=== PATIENT | female | born 1975 ===

== ENCOUNTER 2022-06-28 21:47 | Emergency (ER) | payer BC ==
[~2022-06-28] VITALS: Ht 165.1 cm; Wt 81.6 kg
[2022-06-28] MEDS ORDERED: ACID REDUCER20 M1 PO (22:05)
[2022-06-29] MEDS ORDERED: ZOFRAN8 MG PO (01:42)
[2022-06-29] MEDS ORDERED: PEPCID40 MG PO (01:42)
== END 2022-06-29 01:47 ==
LOC: ER 21:47
DX: A05.9 Bacterial foodborne intoxication, unspecified (principal); R11.2 Nausea with vomiting, unspecified; Z88.8 Allergy status to other drugs, medicaments and biological substances; Z91.014 Allergy to mammalian meats